=== PATIENT | male | born 1985 | race Caucasian/White ===

== ENCOUNTER 2021-09-19 11:30 | Outpatient (CLI) | payer BC ==
[2021-09-20 00:40] LABS: SARS-CoV-2 PCR by NAA Not Detected (NotDetected)
== END 2021-09-19 11:31 | disposition home or self-care (01) ==
LOC: LABBT 11:30
PROVIDERS: ATTEND Neurological Surgery
DX: Z01.818 Encounter for other preprocedural examination (principal); M51.26 Other intervertebral disc displacement, lumbar region; Z20.822 Contact with and (suspected) exposure to COVID-19
CPT/HCPCS: 93005; 93010; U0003; U0005

== ENCOUNTER 2021-09-24 07:17 | Day surgery (SDC) | payer BC ==
[2021-09-16 12:05] VITALS: BMI 48.4
[2021-09-24] MEDS ORDERED: EPINEPHrine 1 MG/ML AMP ONE (08:55)
[2021-09-24] MEDS ORDERED: Bupivacaine PF 0.5% 30 ML VIAL ONE (08:55)
[2021-09-24] MEDS ORDERED: Midazolam HCl 2 mg/2 ml Vial ONE (08:55)
[2021-09-24] MEDS ORDERED: ceFAZolin 2 GM/Dextrose 50 ML IVPB ONE ×2 (09:02→12:47)
[2021-09-24] MEDS ORDERED: Dexmedetomidine 200 MCG/2 ML VIAL ONE (09:04)
[2021-09-24] MEDS ORDERED: Fentanyl 100 MCG/2 ML VIAL ONE ×3 (09:04→11:22)
[2021-09-24] MEDS ORDERED: Glycopyrrolate 0.2 MG/ML 5 ML SYRINGE ONE (09:14)
[2021-09-24] MEDS ORDERED: Albuterol Sulfate HFA (OR ONLY) ONE (09:14)
[2021-09-24] MEDS ORDERED: Ondansetron PF 4 MG/2 ML Vial ONE (09:14)
[2021-09-24] MEDS ORDERED: Rocuronium Bromide 10 MG/ML (10ML VIAL) ONE (09:14)
[2021-09-24] MEDS ORDERED: Ketorolac Tromethamine 30 MG/ML VIAL ONE (09:14)
[2021-09-24] MEDS ORDERED: Lidocaine 1% PF 5 ML VIAL ONE (09:14)
[2021-09-24] MEDS ORDERED: PROPOFOL 200 MG/20 ML VIAL ONE (09:14)
[2021-09-24] MEDS ORDERED: Dexamethasone 20 MG/5 ML VIAL ONE (09:14)
[2021-09-24] MEDS ORDERED: PHENYLEPHRINE-NS 100 MCG/ML 10 ML SYRINGE ONE (09:14)
[2021-09-24] MEDS ORDERED: Tamsulosin HCl 0.4 MG CAP ONE (11:04)
[2021-09-24] MEDS ORDERED: HYDROcodone/Acetaminophen 5/325 mg Tablet ONE ×2 (12:25→12:26)
== END 2021-09-24 13:35 | disposition home or self-care (01) ==
LOC: SDC 07:17
PROVIDERS: ATTEND Neurological Surgery
PROC: 01NR0ZZ Release Sacral Nerve, Open Approach (ICD-10-PCS; principal; 2021-09-24)
DX: M48.07 Spinal stenosis, lumbosacral region (principal); M51.16 Intervertebral disc disorders with radiculopathy, lumbar region; E78.5 Hyperlipidemia, unspecified; G89.29 Other chronic pain; J45.909 Unspecified asthma, uncomplicated; I10 Essential (primary) hypertension; F17.210 Nicotine dependence, cigarettes, uncomplicated; F17.290 Nicotine dependence, other tobacco product, uncomplicated; E66.01 Morbid (severe) obesity due to excess calories; Z68.42 Body mass index [BMI] 45.0-49.9, adult; Z79.899 Other long term (current) drug therapy; Z88.4 Allergy status to anesthetic agent
CPT/HCPCS: 76000; J0171; J0690; J1100; J1885; J2250; J2405; J2704; J3010; S0020